=== PATIENT | female | born 1965 | race Caucasian/White ===

== ENCOUNTER → 2017-08-04 | Outpatient (CLI) | payer OTHER ==
[~2017-08-04] VITALS: Ht 160 cm; Wt 75.3 kg
[~2017-08-04] MED LIST: METO1TAB6 PO; VENL37.57 PO
[2017-08-04 08:52] VITALS: BP 119/70
[2017-08-04 08:52] LABS: HEMATOCRIT 26.5 % (36.0-47.0); HEMOGLOBIN 8.2 g/dL (12.0-15.5)
[2017-08-04 10:05] VITALS: BP 129/77
[2017-08-04 11:06] VITALS: BP 103/61
[2017-08-04 11:38] VITALS: BP 108/63
== END | disposition home or self-care (01) ==
LOC: OPS 08:02
PROVIDERS: ATTEND Obstetrics & Gynecology
DX: N92.0 Excessive and frequent menstruation with regular cycle (principal); D64.9 Anemia, unspecified
CPT/HCPCS: 36415; 36430; 85014; 85018; 86850; 86900; 86901; 86920; P9016

== ENCOUNTER → 2018-09-22 | Outpatient (CLI) | payer OTHER ==
[2017-08-04 11:38] VITALS: BP 108/63
--- NOTE | 2018-09-24 16:46 | KCIC ---
Bilateral digital screening mammograms with 3-D tomosynthesis: Reason for examination: Routine screening. Comparison is made to previous studies dated 06/20/2017 and 08/23/2013. Bilateral mammograms in CC and oblique projections were obtained with 2-D imaging and 3-D tomosynthesis imaging on a Siemens Inspiration unit and reviewed on the workstation. Interpretation was made with the benefit of CAD. The skin and nipples show no abnormalities. No abnormal axillary lymph nodes are seen. The breast parenchyma shows scattered fatty and fibroglandular density. (Breast density: Category B.) There are no dominant masses, suspicious calcifications or architectural distortion. Benign calcifications are present. Impression: No evidence of malignancy. Recommend routine screening. BI-RAD Category 2: Benign. "Our facility is accredited by the [employer] Mammography Program." This patient's information has been entered into a reminder system for the patient to be notified with the results of her examination and a target date for the next mammogram. Electronically signed by: Flores Martel MD (09/24/2018 4:43 PM) [id number]
== END | disposition home or self-care (01) ==
LOC: KCIC MAMMO 12:35
PROVIDERS: ATTEND Family Medicine
DX: Z12.31 Encounter for screening mammogram for malignant neoplasm of breast (principal)
CPT/HCPCS: 77063; 77067

== ENCOUNTER → 2021-09-25 | Outpatient (CLI) | payer OTHER ==
[2017-08-04 11:38] VITALS: BP 108/63
--- NOTE | 2021-09-25 10:58 | KCIC ---
CT for coronary artery calcium scoring, without IV contrast, 09/25/2021 10:54 AM INDICATION: Reason: MIXED HYPERLIPIDEMIA / Spl. Instructions: / History: Technique: Noncontrast CT images through the coronary arteries was performed . Findings: No significant noncardiac findings are identified. Visual inspection of the coronary arteries demonstrates overt calcification. The computer-generated calcium scoring utilizing AJ-130 criteria are as follows: Left Main Artery: 0. Left Anterior Descending Artery: 0. Left Circumflex Artery: 0. Right Coronary Artery: 0. The total calcium score is 0. Impression: Your total calcium score is 0. No plaque is present. The chance of significant heart disease is less than 5%, and corresponds to a very low risk for a myocardial infarction. Table: 0: No plaque is present. The chance of significant heart disease is less than 5%, and corresponds to a very low risk for a myocardial infarction. 1-10: A small amount of plaque is present. The chance of significant heart disease is less than 10%, and corresponds to a low risk for a myocardial infarction. 11-100: Plaque is present. This correlates with mild heart disease and a moderate risk for a myocardi al infarction. 101-400: A moderate amount of plaque is present. This correlates with heart disease, and a moderate t o high risk for a myocardial infarction. Over 400: A large amount of plaque is present. This correlates with a greater than 90% chance of a h igh grade stenosis. The risk for myocardial infarction is high. Electronically signed by: Douglas Luo MD (09/25/2021 10:55 AM) [id number]
== END ==
LOC: KCIC CT 09:47
PROVIDERS: ATTEND Family Medicine
DX: E78.2 Mixed hyperlipidemia (principal)
CPT/HCPCS: 75571